=== PATIENT | female | born 1985 | race Caucasian/White ===

== ENCOUNTER 2016-12-07 11:33 | Day surgery (SDC) | payer MEDICAID ==
[2016-12-07] VITALS (14 sets, daily range): BP systolic 131–166; BP diastolic 80–105; PULSE 50–100; RESP 13–16; TEMP 97–98.1; O2SAT 93–100; Ht 162.6 cm; Wt 65.4 kg
[~2016-12-07] VITALS: Ht 162.6 cm; Wt 65.4 kg
[~2016-12-07 11:33] MED LIST: IBUP-1547 PO; LIDOCAINE 1% (10mg/ml) 2ml SDV INJ ONE; LR 1,000 ML IV SCH; NIFE-2 PO
--- OUTSIDE RECORDS SUMMARY | 2016-12-07 11:38 | XMS REPORT | Continuity of Care Document ---
Author Author [facility] Organization [facility] Address Unknown Phone Unavailable Support Name Relationship Address Phone ARTUR CASIANO MD Caregiver [address] [place] [address] Unavailable ARTUR CASIANO MD Caregiver [address] [place] [address] Unavailable SEAN HERNANDEZ Next Of Kin [address] [place] [address] Insurance Providers Guarantor Ravi Hernandez Address [address] [place] [address] Email DENIED/NO TO PORT 16 Payer [facility] Community Plan Policy Number [id number] Subscriber's Name Ravi Hernandez Relationship 18 Self Effective Date 16 Expiration Date 16 Advance Directives Directive Response Recorded Date/Time Ordered Resuscitation Status Full Code 10/01/16 8:15am Resuscitation Documents on File No 10/01/16 8:39am DPOA for Healthcare Only No 10/01/16 8:39am Living Will No 10/01/16 8:39am Problems Active Problems Medical Problem Onset Date Status Acute blood loss anemia Unknown (spontaneous vaginal delivery) Unknown Shortness of breath Unknown Acute Medications Current Home Medications Medication Dose Units Route Directions Days Qty Instructions Start Date Hydrocodone/Acetaminophen (Fortuna 5-325 Tablet) 5-325 Tablet 1-2 Tab Oral Every 4 Hours as needed for Pain 20 Tablet 10/02/16 Ibuprofen 800 Mg Tablet 800 Mg Oral Every 8 Hours as needed for Pain 30 Tablet 10/02/16 Iron Polysaccharide Complex (Ferrex 150) 150 Mg Capsule 150 Mg Oral Daily 30 Capsule 10/02/16 Pnv95/Ferrous Fumarate/Fa ( Caplet) 1 Each Tablet 10/01/16 Past Home Medications Medication Directions Ordered Status Calcium Carbonate (Tums) 1 Tab.chew Tab.chew, 1 Tab.chew Oral As Needed 06/26 Discontinued Methadone Hcl (Methadose) 10 Mg Tablet, 90 Mg Oral Daily 01/20/11 Discontinued Methadone Hcl (Methadose) 5 Mg Tablet, 01/20/11 Discontinued No Meds , 08/21/09 Discontinued Vit/Fe Fumarate/Fa ( Vitamin Tablet) 1 Tab Tablet, 1 Tab Oral Daily 07/18/08 Discontinued Vits W-Ca,Fe,Fa(<1MG) () 1 Tab Tablet, 1 Tab Oral Daily 02/16 Discontinued Social History Social History Problem Response Recorded Date/Time Onset Date Status Reason for Hospitalization Induction of Labor 10/02/2016 5:21pm Not Applicable Not Applicable Hx Substance Use No 10/01/2016 8:39am Not Applicable Not Applicable Hx Alcohol Use No 02/26/2015 1:08am Not Applicable Not Applicable Has the pt used tobacco in the last 12 months Yes 10/01/2016 8:39am Not Applicable Not Applicable Tobacco Usage smoke 02/26/2015 3:52am Not Applicable Not Applicable Query Response Start Date Stop Date Smoking Status Current every day smoker Hospital Discharge Instructions Instructions: Care Instructions: Reason for Hospitalization: Induction of Labor I was in the hospital because (patient own words): to have a baby Discharge Diet: Regular Discharge Activity: See instructions handout Follow Up Appointments: Dr. Casiano in 6 weeks Pending Lab / Results: Will review at f/u apt Patient Instructions: Follow up [address] Casiano Wound/Incision Care: See instructions handout Pain Management/Treatment: Fortuna Ibuprofen Expected Signs/Symptoms: See instructions handout Notify Physician If: See instructions handout During Business Hours:: Call [phone] After Business Hours:: Call [phone] ([facility] [place] Condition at time of discharge: Good Plan of Care Discharge Date 10/02/16 6:09pm Disposition 01 DISCHARGED HOME, SELF-CARE Instructions/Education Provided [facility] Vaginal Delivery Prescriptions See Medication Section Care Plan and Goals See Discharge Instructions Section Functional Status Query Response Date Recorded Mobility Status Ambulatory October 02, 2016 5:21pm Assistive Devices None October 02, 2016 5:21pm Activity Limitations None October 02, 2016 5:21pm Feeding Ability Independent October 02, 2016 5:21pm Toileting Ability Independent October 02, 2016 5:21pm Grooming Ability Independent October 02, 2016 5:21pm Dressing Ability Independent October 02, 2016 5:21pm Driving Ability Independent October 02, 2016 5:21pm Housework Ability Independent October 02, 2016 5:21pm Meal Preparation Ability Independent October 02, 2016 5:21pm Stair Climbing Ability Independent October 02, 2016 5:21pm Ability to complete ADL's impeded by No change October 02, 2016 5:21pm Cognitive/Perceptual Impairments None October 02, 2016 5:21pm Preferred Method of Learning Demonstration Listening October 01, 2016 9:12am Allergies, Adverse Reactions, Alerts Allergen Type Severity Reaction Status Last Updated No Known Drug Allergies Allergy Unknown Active 02/26/15 hay fever Allergy Mild ITCHING Active 06/26/08 Immunizations Immunization Event Date Type Not Given Reason Dose Number Lot Number Cutter Wet Machine VIS Given MMR 10/01/16 Administered 1 [id number] [employer] 10/01/16 Rhophylac 10/02/16 Administered 5 [id number] Query Response on File Recorded Date/Time Hx Influenza Vaccination No 02/26/15 1:08am Hx Pneumococcal Vaccination No 02/26/15 1:08am Hx Tetanus, Diptheria, Pertussis N/A 02/26/15 1:08am Hx Influenza Vaccination No 02/26/15 1:08am Hx Tetanus, Diptheria, Pertussis N/A 02/26/15 1:08am Influenza Vaccine Hx refused 10/01/16 8:39am MMR Vaccine Hx 10-01-2016 10/01/16 5:13pm Tdap Vaccine Hx 10/01/16 8:39am Vital Signs Acute Vital Signs Vital Response Date/Time Temperature (Fahrenheit) 98.5 deg F (96.8 - 99.1) 10/02/2016 5:14pm Temperature (Calculated Celsius) 36.49691 degrees C (36.0 - 37.3) 10/02/2016 5:14pm Pulse Rate (adult) 93 bpm (60 - 100) 10/02/2016 5:14pm Respiratory Rate 20 breaths/min (10 - 20) 10/02/2016 5:14pm O2 Sat by Pulse Oximetry 100 % (90 - 100) 10/02/2016 5:14pm Oxygen Delivery Method Room Air 10/02/2016 5:14pm Blood Pressure 130/78 mm Hg 10/02/2016 5:14pm Blood Pressure Source Automatic Cuff 10/02/2016 5:14pm Height (Feet) 5 feet 10/01/2016 8:39am Height (Inches) 5.00 inches 10/01/2016 8:39am Weight (Kilograms) 71.000 kg 10/01/2016 8:39am Height 5 ft 5 in 10/01/2016 8:39am Weight 156.53 lb 10/01/2016 8:39am Body Mass Index 26.0 kg/m^2 10/01/2016 8:39am Results Laboratory Results Test Name Result Units Flags Reference Collection Date/Time Result Date/ Time Comments White Blood Count 16.8 T/MM3 D H 4.5-11.0 10/02/2016 4:53am 10/02/2016 6: 14am Red Blood Count 2.42 M/MM3 L 4.00-5.20 10/02/2016 4:53am 10/02/2016 6: 14am Hemoglobin 7.6 GM/DL D L 12-16 10/02/2016 4:53am 10/02/2016 6:14am Hematocrit 23.8 % D L 36-46 10/02/2016 4:53am 10/02/2016 6:14am Mean Corpuscular Volume 98.3 UM3 80-100 10/02/2016 4:53am 10/02/2016 6: 14am Mean Corpuscular Hemoglobin 31.4 UUG 26-34 10/02/2016 4:53am 2016 6:14am Mean Corpuscular Hemoglobin Concent 31.9 GM/DL 31-37 10/02/2016 4:53am 10/02/2016 6:14am RDW Standard Deviation 42.0 FL 36.9-50.2 10/02/2016 4:53am 10/02/2016 6 :14am Platelet Count 150 T/MM3 130-400 10/02/2016 4:53am 10/02/2016 6:14am Mean Platelet Volume 11.0 UM3 9.4-12.4 10/02/2016 4:53am 10/02/2016 6: 14am Hemoglobin /Adult Ratio 0.0000 RATIO 0.0000-0.0045 10/02/2016 4: 53am 10/02/2016 10:49am /ADULT RATIO VOL OF H VIALS INDICATED 0.0000-0.0045 0-15 ML 1 0.0046-0.0090 15-30 ML 2 0.0091-0.0135 30-45 ML 3 0.0136-0.0180 45-60 ML 4 0.0181-0.0225 60-75 ML 5 Icterus Index < 2 0-7 10/01/2016 10:54am 10/01/2016 11:21am Chemistry Specimen Hemolysis < 15 0-25 10/01/2016 10:54am 10/01/2016 11:21am 0-25: Specimen Exhibited No Hemolysis. Turbidity < 20 0-20 10/01/2016 10:54am 10/01/2016 11:21am Sodium Level 137 MEQ/L 134-144 10/01/2016 10:54am 10/01/2016 11:21am Potassium Level 3.6 MEQ/L 3.6-5 10/01/2016 10:54am 10/01/2016 11:21am Chloride Level 108 MEQ/L H 98-107 10/01/2016 10:54am 10/01/2016 11:21am Carbon Dioxide Level 24 MEQ/L 22-30 10/01/2016 10:54am 10/01/2016 11: 21am Anion Gap 5 MEQ/L 5-15 10/01/2016 10:54am 10/01/2016 11:21am Blood Urea Nitrogen 11.0 MG/DL 7-17 10/01/2016 10:54am 10/01/2016 11: 21am Creatinine 0.6 MG/DL L 0.7-1.2 10/01/2016 10:54am 10/01/2016 11:21am BUN/Creatinine Ratio 18 RATIO 6-26 10/01/2016 10:54am 10/01/2016 11: 21am Glomerular Filtration Rate Calc 118 10/01/2016 10:54am 10/01/2016 11:21am Glucose Level 99 MG/DL 65-110 10/01/2016 10:54am 10/01/2016 11:21am Calculated Osmolality 263 MOSM/KG 261-280 10/01/2016 10:54am 2016 11:21am Calcium Level 8.7 MG/DL 8.4-10.2 10/01/2016 10:54am 10/01/2016 11:21am Total Bilirubin 0.30 MG/DL 0.20-1.30 10/01/2016 10:54am 10/01/2016 11: 21am Alkaline Phosphatase 159 U/L H 38-126 10/01/2016 10:54am 10/01/2016 11: 21am Total Protein 5.7 G/DL L 6.3-8.2 10/01/2016 10:54am 10/01/2016 11:21am Albumin 3.1 G/DL L 3.5-5.0 10/01/2016 10:54am 10/01/2016 11:21am Globulin 2.6 G/DL 2.4-3.6 10/01/2016 10:54am 10/01/2016 11:21am Albumin/Globulin Ratio 1.2 RATIO 1.1-2.2 10/01/2016 10:54am 10/01/2016 11:21am Aspartate Amino Transf (AST/SGOT) 18 U/L 14-36 10/01/2016 10:54am 10/01 11:21am Alanine Aminotransferase (ALT/SGPT) 28 U/L 9-52 10/01/2016 10:54am 11:21am Procedures No known history of procedures. Encounters Encounter Location Arrival/Admit Date Discharge/Depart Date Attending Provider Discharged Inpatient [facility] 10/01/16 8:11am 10/02/16 6:09pm ARTUR CASIANO MD
[2016-12-07 11:57] LABS: HCT - HEMATOCRIT 37.7 % (36-46); HGB - HEMOGLOBIN 11.7 GM/DL (12-16); MEAN CORPUSCULAR HGB 26.4 UUG (26-34); MEAN CORPUSCULAR VOLUME 85.1 UM3 (80-100); MEAN PLATELET VOLUME 9.1 UM3 (9.4-12.4); RED BLOOD COUNT 4.43 M/MM3 (4.00-5.20)
[2016-12-07 11:59] LABS: BLOOD, URINE 3+ (NEGATIVE); COLOR,URINE YELLOW (YELLOW); LEUKOCYTE ESTERASE ,URINE NEGATIVE (NEGATIVE); NITRITE,URINE NEGATIVE (NEGATIVE); UROBILINOGEN,URINE 0.2 EU/DL (NORMAL)
[2016-12-07 12:07] LABS: ALBUMIN 4.1 G/DL (3.5-5.0); ALBUMIN/GLOBULIN RATIO 1.2 RATIO (1.1-2.2); ALKALINE PHOSPHATASE 74 U/L (38-126); ALT (SGPT) 31 U/L (9-52); AMPHETAMINE SCREEN,URINE NEGATIVE; ANION GAP 10 MEQ/L (5-15); AST (SGOT) 36 U/L (14-36); BARBITURATE SCREEN,URINE NEGATIVE; BENZODIAZEPINES SCREEN,URINE NEGATIVE; BUN/CREATININE RATIO 19 RATIO (6-26); CALCIUM 8.9 MG/DL (8.4-10.2); CANNABINOID SCREEN,URINE NEGATIVE; CHLORIDE 110 MEQ/L (98-107); CO2 - CARBON DIOXIDE 25 MEQ/L (22-30); COCAINE SCREEN,URINE NEGATIVE; CREATININE 0.8 MG/DL (0.7-1.2); ETHANOL <10 MG/DL (<10); GLOMERULAR FILTRATION RATE 85; GLUCOSE 106 MG/DL (65-110); METHADONE SCREEN, URINE NEGATIVE; METHAMPHETAMINE SCREEN, URINE NEGATIVE; OPIATE SCREEN,URINE NEGATIVE; PHENCYCLIDINE SCREEN,URINE NEGATIVE; SODIUM 145 MEQ/L (134-144); TOTAL PROTEIN 7.4 G/DL (6.3-8.2); TRICYCLIC ANTIDEPRESSANT,URINE NEGATIVE
[2016-12-07 12:12] LABS: BACTERIA,URINE NEGATIVE (NEGATIVE); MUCUS,URINE PRESENT; WBC,URINE NONE SEEN /HPF (0-5)
[2016-12-07] MEDS ORDERED: BUPIVACAINE 0.25% (2.5mg/ml) INJ 30ml SDV ONE (12:40)
--- NOTE | 2016-12-07 13:16 | ANESPREOP ---
Anesthesia Record Date and Time DATE: 12/07/16 TIME: 13:11 Pre-Op Diagnosis requests sterilization Proposed Surgical Procedure LAP. RASHEEDA. TUBAL LIGATION Allergies: Coded Allergies: No Known Drug Allergies (Unverified Allergy, Unknown, 02/26/15) Uncoded Allergies: hay fever (Allergy, Mild, ITCHING, 06/26/08) seasonal Ht/Wt/BMI Height: 5 ' 4.00 " Weight: 65.400 kg BMI: 24.8 kg/m2 Vital Signs Date Time Temp Pulse Resp B/P Pulse Ox O2 Delivery O2 Flow Rate FiO2 12/07/16 11:49 98.1 68 13 163/83 98 Room Air Medications Inpatient Medications Current Medications Medications (Trade) Dose Ordered Sig/Arpit Start Time Stop Time Status Last Admin Dose Admin Lactated Ringer's (Lactated Ringers) 1,000 ml @ 125 mls/hr Q8H 12/07/16 07:00 12/07/16 12:17 125 MLS/HR Ibuprofen (Ibuprofen) 800 Mg Tablet, 800 MG PO Q8H PRN for PAIN Last Taken: on 12/06/16 0800 Nifedipine (Nifedipine ER) 30 Mg Tab.er.24, 1 TAB PO DAILY, (Reported) Last Taken: on 12/07/16 0830 Currently on Beta Farzana: No Medical/Surgical History Anesthesia PMH: Reports: *Hypertension, Anesthesia Reactions (NO AIRWAY ISSUES) , Denies: *Angina, *Diabetes, *MT, Asthma, CHF, COPD, CVA/Stroke/TIA, Cancer, Glaucoma, Hiatal Hernia, Malignant Hyperthermia, Pneumonia, Reflux, Renal Disease, Seizures, Sleep Apnea, Tuberculosis Smoking Status: Current every day smoker Has pt. smoked today?: Yes # of Packs per Day: 1 # of Years: 15 Use Chewing Tobacco?: No Second Hand Exposure: Yes Substance Use Type: opiates, methamphetamine HX of Last Menstrual Period: WITHIN PAST YEAR Past Surgical History Orthopedic Surgeries: Abdominal Surgeries: Genitourinary Surgeries: Cardiac Surgeries: Endocrine Surgeries: Reproductive Surgeries: Yes - D&C Neurological Surgeries: Ear Surgeries: Yes - TUBES PER H&P Nose Surgeries: Throat Surgeries: Other Surgeries: No Anesthesia Adverse Reactions: FOUND none Family Hx of Anesthesia Advers: none Hx of Motion Sickness: No Pertinent Findings Laboratory Tests 12/07/16 11:50 Test 12/07/16 11:50 Human Chorionic Gonadotropin, Qual Negative (NEGATIVE) EKG Rhythm: Sinus Rhythm Physical Exam Respiratory: Bilat breath sounds equal, Lungs clear Cardiovascular: FOUND Regular rate, rhythm, FOUND No murmur Airway Assessment Mallampati Score: I TMD: 3 Fingerbreadths Neck Extension: Good Overall Assessment: No Airway Concerns ASA: 2 Plan Anesthesia Plan: GETA Discussion Discussed risks/options/alternatives of anesthesia and questions answered. Patient consents. Nursing pain assessment noted. Present: Spouse Attestation Statement Prior to the delivery of any anesthetic medication, I examined the patient, developed the plan, obtained the patient's consent and discussed the risk and benefits of the procedure with the patient/guardian. TARSHA NANCE CRNA Dec 07, 2016 13:16
[2016-12-07] MEDS ORDERED: PROPOFOL 200mg 20 ML IV ONE (13:20)
[2016-12-07] MEDS ORDERED: VECURONIUM 10mg/10ml INJECTION IV ONE (13:20)
[2016-12-07] MEDS ORDERED: ROCURONIUM 50mg/5ml INJECTION IV ONE ×2 (13:20)
[2016-12-07] MEDS ORDERED: LIDOCAINE 2% (20mg/ml) 5ml PF SDV ONE ×2 (13:20)
[2016-12-07] MEDS ORDERED: FENTANYL 100mcg/2ml INJECTION ONE ×2 (13:22→15:50)
[2016-12-07] MEDS ORDERED: ONDANSETRON 4mg/2ml INJECTION ONE (13:25)
[2016-12-07] MEDS ORDERED: GLYCOPYRROLATE 0.4mg/2ml INJECTION ONE (13:25)
[2016-12-07] MEDS ORDERED: MIDAZOLAM 2mg/2ml INJECTION ONE (15:15)
[2016-12-07] MEDS ORDERED: KETAMINE 500mg/10ml INJECTION ONE (15:15)
[2016-12-07] MEDS ORDERED: KETOROLAC 30mg/ml INJECTION ONE (15:51)
--- NOTE | 2016-12-07 15:59 | GYNOPNOTE1 ---
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
[2016-12-07] MEDS ORDERED: METOCLOPRAMIDE 10mg/2ml INJECTION IV PRN (16:00)
[2016-12-07] MEDS ORDERED: MORPHINE SULFATE 4 MG SYRINGE IV PRN (16:00)
[2016-12-07] MEDS ORDERED: ONDANSETRON 4mg/2ml INJECTION IV PRN (16:00)
[2016-12-07] MEDS ORDERED: HYDROCODONE/APAP 5 mg/325 mg TABLET PO PRN (16:00)
[2016-12-07] MEDS ORDERED: HYDR-4246 PO (16:01)
[2016-12-07] MEDS: HYDROMORPHONE 2mg/ml INJECTION IV PRN ×2 (16:15→16:26)
--- NOTE | 2016-12-07 17:56 | ANESPO ---
Post-Op Note Date 12/07/16 Time: 17:45 Status Pt Participated in Evaluation: Pt participated in person Vital Signs Date Time Temp Pulse Resp B/P Pulse Ox O2 Delivery O2 Flow Rate FiO2 12/07/16 17:45 68 16 139/87 99 Room Air 12/07/16 16:38 97.7 12/07/16 16:10 6.00 Respiratory Function: Airway patent Cardiovascular Function: Regular pulse Mental Status: Alert/oriented Pain Level Intensity: 5 Hydration: Taking po fluids Complications during Recovery None apparent Follow-Up Instructions Instructions Per Surgeon MARIANA LI CRNA Dec 07, 2016 17:56
--- NOTE | 2016-12-10 08:19 | OPNOTEF ---
DATE OF PROCEDURE 12/07/2016 PREOPERATIVE DIAGNOSIS Desires permanent sterilization. POSTOPERATIVE DIAGNOSIS Desires permanent sterilization. PROCEDURE Laparoscopic tubal ligation via fulguration. SURGEON Dr. aCta Domínguez ANESTHESIA General endotracheal by Henry Alvarado CRNA COMPLICATIONS None. EBL 25 ml FINDINGS Normal-appearing uterus, tubes and ovaries. Normal-appearing appendix. The liver appeared slightly enlarged. DESCRIPTION OF PROCEDURE The patient was taken to the operating room where anesthesia was obtained. She was placed in the lithotomy position. When I was doing a pelvic exam, I discovered a tampon and this was removed and thrown away. She was then prepared and draped in the normal sterile fashion. Her bladder was drained. An open-sided speculum was placed in the vagina. The anterior cervix was grasped with an Allis. A 13-Nepalese dilator was placed through the cervix and taped to the Allis for uterine manipulation. The patient's legs were lowered, gloves were changed and attention was turned to the abdomen. Both skin incisions were injected with 0.25% Marcaine prior to incision. A 5 mm umbilical incision was made. I attempted to place a Veress needle, but the peritoneum felt very stretchy likely due to her recent vaginal delivery. Instead, the 5 mm trocar was placed with a camera inside to watch entry. Then the abdomen was insufflated with CO2. The patient was placed in a small amount of Trendelenburg. A 5-mm port was placed in the midline just above the symphysis pubis under direct visualization. The bowels were swept out of the posterior cul-de-sac. Both fallopian tubes were identified and carried out to the fimbria. An avascular segment was cauterized multiple times in succession with good blanching noted. There was good hemostasis seen throughout the case. The lower port was removed under direct visualization. The patient was flattened and the abdomen was desufflated. The umbilical port was removed. The skin incisions were closed with 4-0 Vicryl in a subcuticular fashion. Dermabond was placed. Attention was returned to the vagina. The uterine manipulator was removed. Good hemostasis was noted. The patient was taken out of the lithotomy position and to the recovery room in good condition. Sponge and sharp counts were correct. MTDD
== END 2016-12-07 17:52 | disposition home or self-care (01) ==
LOC: SCU 11:33
PROVIDERS: ATTEND Obstetrics & Gynecology
DX: Z30.2 Encounter for sterilization (principal); T19.2XXA Foreign body in vulva and vagina, initial encounter; X58.XXXA Exposure to other specified factors, initial encounter; F17.210 Nicotine dependence, cigarettes, uncomplicated
CPT/HCPCS: 36415; 58670; 80053; 80307; 81001; 84703; 85027; J1170; J1885; J2250; J2405; J2704; J3010; J7120; S0020; 80306